=== PATIENT | female | born 1995 | race African-American/Black ===

== ENCOUNTER 2019-01-20 14:05 | Emergency (ER) | payer MEDICAID ==
[~2019-01-20] VITALS: Ht 180.3 cm; Wt 73.0 kg
[2019-01-20 14:53] LABS: BASOPHILS % 0.3 % (0.0-2.0); EOSINOPHILS % 0.4 % (0.0-5.0); HEMATOCRIT. 41.4 % (36.0-48.0); HEMOGLOBIN. 13.8 g/dL (12.0-16.0); LYMPHOCYTES % 18.2 % (20.0-50.0); MEAN CORPUSCULAR HEMOGLOBIN 30.6 pg (28.0-32.0); MEAN PLATELET VOLUME 8.6 fl (7.4-10.4); MONOCYTES % 6.6 % (2.0-8.0); NEUTROPHILS % 74.5 % (40.0-76.0); PLATELET 215 x1000/uL (130-400)
[2019-01-20 15:01] LABS: CHLORIDE 107 mEq/L (98-107)
[2019-01-20 16:14] VITALS: BP 104/50
[2019-01-20 16:23] LABS: HCG SCREEN NEGATIVE
== END 2019-01-20 17:57 | disposition home or self-care (01) ==
LOC: ER 14:09
DX: R55 Syncope and collapse (principal); M79.18 Myalgia, other site
CPT/HCPCS: 36415; 70450; 71045; 72125; 80053; 83880; 84484; 84703; 85025; 93005; 99284; Z7610